=== PATIENT | male | born 1975 | race Caucasian/White ===

== ENCOUNTER 2017-01-05 20:07 | Emergency (ER) | payer OTHER ==
[2017-01-05] MEDS ORDERED: OXYCODONE/APAP 5/325MG PREPACK#4 BTL TAKEHOME ONE (22:21)
--- NOTE | 2017-01-05 22:25 | EDPHY ---
H & P Time Seen by Provider: 01/05/17 20:50 HPI/ROS: Chief complaint. Hand injury HPI. 41-year-old male was hiking today slipped and a [place] rolled over his hand. He felt that his fingers were bent back and possibly dislocated any seem to be able to straighten them out by himself. He has pain and swelling between the thumb and index finger of the left hand and pain with movement of those finger. He also has an abrasion to the left forearm. Patient is right handed. No previous injury ROS Constitutional. no fever/chills, no weakness Eyes. no problems with vision ENT. no sore throat, no nasal drainage Cardiovascular. no chest pain Respiratory. no shortness of breath, no cough Abdominal. no abdominal pain, no nausea/vomiting, no diarrhea . no problems urinating MS. Pain and swelling to left hand Skin. no rash Lymph. no swollen glands Neuro. no headache, no dizziness, no difficulty walking or with speech Past Medical/Surgical History: Healthy Social History: , nonsmoker, no alcohol Smoking Status: Never smoked Physical Exam: General Appearance: Alert well-developed male mild distress vital signs stable Eyes: Pupils equal and round no pallor or injection. ENT, Mouth: Mucous membranes are moist. Respiratory: There are no retractions, lungs are clear to auscultation. Cardiovascular: Regular rate and rhythm. Gastrointestinal: Abdomen is soft and nontender, no masses, bowel sounds normal. Neurological: Awake and alert, sensory and motor exams grossly normal. Skin: Abrasion to left forearm Musculoskeletal: Neck is supple nontender. Extremities left hand is swollen especially along the thumb and index finger and in the webspace between. There is no laceration. Distal motor vascular sensitivity is intact. No deformity no obvious dislocation Psychiatric: Patient is oriented X 3, there is no agitation. Constitutional: Initial Vital Signs Temperature (C) 37.1 C 01/05/17 20:10 Allergies/Adverse Reactions: ciprofloxacin [From Cipro] Allergy (Mild, Verified 01/05/17 20:12) Home Medications: Medication Instructions Recorded oxyCODONE/APAP 5/325 [Percocet 1 tab PO Q4-6PRN PRN #10 tab 01/05/17 5/325] Medical Decision Making - Diagnostics Imaging Results: Imaging Impressions Hand X-Ray 01/05/17 21:01 Impression: 1. Normal left wrist series. 2. Normal left hand series. Wrist X-Ray 01/05/17 21:15 Impression: 1. Normal left wrist series. 2. Normal left hand series. X-ray left hand and wrist interpreted by me is normal Procedures: Thumb spica splint is applied. Post splint application shows good anatomic position and distal motor vascular sensitivity to be intact ED Course/Re-evaluation: Re-evaluation patient is stable. Patient and I discussed imaging study results, treatment plan including criteria for return importance of follow-up further evaluation. He expresses understanding and agreement Differential Diagnosis: I considered fracture, dislocation, sprain Departure - Departure Disposition: Home, Routine, Self-Care Clinical Impression: Hand sprain Qualifiers: Encounter type: initial encounter Laterality: left Qualified Code(s): S63.92XA - Sprain of unspecified part of left wrist and hand, initial encounter Condition: Good Instructions: Hand Sprain (ED) Additional Instructions: Ice on top of the splint next 24-48 hours. Ibuprofen 600 mg every 6 hours. Percocet in addition. Keep splint on for 1 week. Follow up with your regular physician on return to [place] Referrals: ALFONSO PERSAUD [Other] - As per Instructions Prescriptions: oxyCODONE/APAP 5/325 [Percocet 5/325] 1 tab PO Q4-6PRN PRN #10 tab PRN Reason: Pain, Moderate
[2017-01-05 23:35] VITALS: BP 131/95; PULSE 889; RESP 16; TEMP 97.9; O2SAT 98
== END 2017-01-05 22:15 | disposition home or self-care (01) ==
DX: S63.92XA Sprain of unspecified part of left wrist and hand, initial encounter (principal); W18.40XA Slipping, tripping and stumbling without falling, unspecified, initial encounter; Y99.8 Other external cause status; Y93.01 Activity, walking, marching and hiking